=== PATIENT | male | born 1990 | race Caucasian/White ===

== ENCOUNTER 2018-05-14 19:50 | Emergency (ER) | payer BC, OTHER ==
--- NOTE | 2018-05-14 23:34 | RADIOLOGY REPORT (SQ) ---
EXAM DESCRIPTION: XR ANKLE 2 VIEWS BILATERAL COMPLETED DATE/TME: 05/14/2018 00:00 CLINICAL HISTORY: 27 years, Male, swelling, wakeboard injury COMPARISON: None. FINDINGS: 3 views of the right ankle. No acute fracture or dislocation. Normal osseous mineralization. Tibial plafond and talar dome have normal appearance. Base of the fifth metatarsal is intact. 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 IMPRESSION: No acute fracture or dislocation. 2011 [employer]- All Rights Reserved
[2018-05-14] MEDS ORDERED: IBUPROFEN 600 MG TABLET PO ONE (23:38)
[2018-05-14] MEDS ORDERED: HYDROCODONE/ACETAMINOPHEN 5-325 MG (6 TAB/ER DISP) PO PRN (23:38)
--- NOTE | 2018-05-14 23:47 | ER Document Report ---
ED Extremity Problem, Lower - General Chief Complaint: Feet Swelling Stated Complaint: FEET INJURY Time Seen by Provider: 05/14/18 23:37 Mode of Arrival: Wheelchair Information source: Patient Notes: Patient presents with chief complaint of bilateral foot and ankle pain. Patient reports he was on a wakeboard when he fell off and he thinks the strap injured his feet. TRAVEL OUTSIDE OF THE [place] IN LAST 30 DAYS: No - Related Data Allergies/Adverse Reactions: Penicillins Allergy (Intermediate, Verified 05/14/18 19:50) Past Medical History - General Information source: Patient - Social History Smoking Status: Never Smoker Frequency of alcohol use: None Drug Abuse: None Lives with: Family Family History: Reviewed & Not Pertinent - Medical History Medical History: Negative Surgical Hx: Negative - Immunizations Hx Diphtheria, Pertussis, Tetanus Vaccination: Yes Review of Systems - Review of Systems Constitutional: No symptoms reported EENT: No symptoms reported Cardiovascular: No symptoms reported Respiratory: No symptoms reported Gastrointestinal: No symptoms reported Genitourinary: No symptoms reported Male Genitourinary: No symptoms reported Musculoskeletal: See HPI Skin: No symptoms reported Hematologic/Lymphatic: No symptoms reported Neurological/Psychological: No symptoms reported Physical Exam - Vital signs Vitals: Temp Pulse Resp BP Pulse Ox 97.8 F 92 20 126/74 H 100 05/14/18 19:54 05/14/18 19:54 05/14/18 19:54 05/14/18 19:54 05/14/18 19:54 - Notes Notes: PHYSICAL EXAMINATION: GENERAL: Well-appearing, well-nourished and in no acute distress. HEAD: Atraumatic, normocephalic. EYES: Pupils equal round extraocular movements intact, conjunctiva are normal. ENT: Nares patent NECK: Normal range of motion LUNGS: No respiratory distress Musculoskeletal: Normal range of motion, swelling and ecchymosis to patients bilateral feet. No erythema. NEUROLOGICAL: Normal speech, normal gait. PSYCH: Normal mood, normal affect. SKIN: Warm, Dry, normal turgor, no rashes or lesions noted. Course - Re-evaluation Re-evalutation: X-rays of the bilateral feet and ankles are negative for any fracture or dislocations. Patient will be discharged home on crutches. Instructions given to patient regarding use of ibuprofen, ice and elevation. - Vital Signs Vital signs: Temp Pulse Resp BP Pulse Ox 97.8 F 88 20 134/84 H 98 05/14/18 19:54 05/15/18 00:35 05/15/18 00:35 05/15/18 00:35 05/15/18 00:35 Discharge - Discharge Clinical Impression: Contusion Condition: Stable Disposition: HOME, SELF-CARE Additional Instructions: Contusion Your injury has resulted in a contusion -- a crushing of the deep tissues. No injury to important structures was detected during the physician's exam. Contusions vary in the amount of pain they cause, and in the length of time required for healing. Typically, the area will become bruised, and will remain painful to touch for two or three weeks. However, most patients are back to working and playing within a few days. After the initial period of rest and cold-packs, your symptoms (together with the doctor's recommendations) will determine how rapidly you can get back to full activity. Usually this means "do what feels okay, but don't do things that hurt." If re-examination was recommended, it's important to follow up as instructed. Call the doctor or return any time if pain increases, if swelling becomes severe, if you develop numbness or weakness in an injured extremity, or if any other alarming symptoms occur. Ice & Elevation Apply ice packs frequently against the painful area. Many different schedules are recommended, such as "20 minutes on, 20 minutes off" or "one hour ice, two hours rest." If you need to work, you may need to go longer between ice treatments. You should plan to have the area ice packed AT LEAST one- fourth of the time. The ice should be applied over the wrap, tape, or splint, or over a layer of cloth -- not directly against the skin. Some ice bags have a built-in cloth and can be put directly on the skin. Your injured part should be elevated as much as possible over the next 48 hours. Try to keep the injury above the level of the heart. Avoid use of the injured area. Elevation and rest will decrease the swelling. Your x-rays today were normal. Please ice and elevate your extremities. Take ibuprofen 600 mg every 6 hours. Use the hydrocodone that I have provided only for severe pain, you may take 1/2-1 tablet each time. You may also want to try Epsom salt soaks. You can purchase Epsom salt [id number] at any drugstore. Return to your primary care provider or follow-up with Orth [facility] if you do not improve over the next couple of weeks. I am not supplying you with crutches only because your pain is to both of your feet and I do not want to put you at the risk of falling. Prescriptions: Hydrocodone/Acetaminophen [Hydrocodon-Acetaminophen 5-325] 1 each PO Q4H PRN # 10 tablet PRN Reason: For Pain Referrals: KENDALL LOPEZ MD [PEDIATRICS] - Follow up as needed
[2018-05-15 05:48] VITALS: BP 134/84
== END 2018-05-15 00:40 | disposition home or self-care (01) ==
LOC: ER 19:50
DX: S90.32XA Contusion of left foot, initial encounter (principal); S90.31XA Contusion of right foot, initial encounter; X58.XXXA Exposure to other specified factors, initial encounter; Y93.17 Activity, water skiing and wake boarding; Z88.0 Allergy status to penicillin
CPT/HCPCS: 99283